=== PATIENT | female | born 1985 | race American Indian/Alaskan Native ===

== ENCOUNTER 2016-12-18 11:19 | Emergency (ER) | payer SELFPAY ==
--- NOTE | 2016-12-18 12:32 | C.PDOC ---
History Of Present Illness <Naa Cash - Last Filed: 12/18/16 18:42> <Pete Velazquez - Last Filed: 12/18/16 21:50> 31 year old female presents to the ED via BLS who state she was sitting in [employer] all morning. Patient is speaking but not making coherent sentences. HPI and ROS limited. (Naa Cash) History Per: EMS History/Exam Limitations: clinical condition Onset/Duration Of Symptoms: Unknown Current Symptoms Are (Timing): Still Present Severity: Mild <Naa Cash - Last Filed: 12/18/16 18:42> <Pete Velazquez - Last Filed: 12/18/16 21:50> Time Seen by Provider: 12/18/16 11:51 Chief Complaint (Nursing): Medical Clearance Past Medical History Reviewed: Historical Data, Nursing Documentation, Vital Signs Family History: States: Unknown Family Hx - Social History Hx Alcohol Use: No Hx Substance Use: No <Naa Cash - Last Filed: 12/18/16 18:42> Vital Signs: Last Vital Signs Temp 97.9 F 12/18/16 20:40 Pulse 77 12/18/16 20:40 Resp 18 12/18/16 20:40 BP 112/78 12/18/16 20:40 Pulse Ox 97 12/18/16 21:48 Review Of Systems Review Of Systems: ROS cannot be obtained secondary to pt's inabilty to answer questions. <Naa Cash - Last Filed: 12/18/16 18:42> Physical Exam - Physical Exam Appears: Non-toxic, No Acute Distress Skin: Normal Color, Warm, Dry Head: Atraumatic, Normacephalic Eye(s): bilateral: Normal Inspection Oral Mucosa: Moist Chest: Symmetrical, No Deformity Cardiovascular: Rhythm Regular Respiratory: Normal Breath Sounds, No Accessory Muscle Use, No Rales, No Rhonchi Extremity: Normal ROM Neurological/Psych: Other (Bizarre behavior) <Naa Cash - Last Filed: 12/18/16 18:42> ED Course And Treatment - Laboratory Results Result Diagrams: 12/18/16 13:22 12/18/16 13:22 O2 Sat by Pulse Oximetry: 100 (Room air) Pulse Ox Interpretation: Normal Progress Note: Blood work and Urinalysis ordered and reviewed. Case discussed with the crisis memory care director who agreed to evaluate the patient. Patient was approached multiple times by the crisis memory care director who states the patient is not communicating and refused to sign voluntary admission. Crisis found that the patient has a history of schizophrenia and was recently admitted to an involuntary psychiatric unit for a month. Patient will be placed on observation and stay to wait for the [facility] screener. She is stable and medically cleared for the screeners assessment. <Naa Cash - Last Filed: 12/18/16 18:42> - Laboratory Results Result Diagrams: 12/18/16 13:22 12/18/16 13:22 O2 Sat by Pulse Oximetry: 97 Pulse Ox Interpretation: Normal Progress Note: pt was cleared for discharge by dr lai. <Pete Velazquez - Last Filed: 12/18/16 21:50> ED OBSERVATION Date of observation admission: 12/18/16 Time of observation admission: 18:43 <Naa Cash - Last Filed: 12/18/16 18:42> Discharge: Yes <Pete Velazquez - Last Filed: 12/18/16 21:50> - Observation admission statement Patient is being placed in observation because:: Patient will be observed and she will be screened by [facility] psychiatric screener. (Naa Cash) Disposition - Disposition Disposition Time: 18:44 <Naa Cash - Last Filed: 12/18/16 18:42> Counseled Patient/Family Regarding: Studies Performed, Diagnosis, Need For Followup - Disposition Disposition Time: 19:00 <Pete Velazquez - Last Filed: 12/18/16 21:50> - Disposition Disposition: HOME/ ROUTINE Condition: FAIR Instructions: Anxiety (ED), Brief Psychotic Disorder (ED) - Clinical Impression Clinical Impression: Psychosis - PA / PIER MASTER / Resident Statement MD/DO has reviewed & agrees with the documentation as recorded. - Scribe Statement The provider has reviewed the documentation as recorded by the Scribe <Naa Cash - Last Filed: 12/18/16 18:42> <Pete Velazquez - Last Filed: 12/18/16 21:50> - Scribe Statement Martha Rhoades. All medical record entries made by the Scribe were at my direction and personally dictated by me. I have reviewed the chart and agree that the record accurately reflects my personal performance of the history, physical exam, medical decision making, and the department course for this patient. I have also personally directed, reviewed, and agree with the discharge instructions and disposition. (Naa Cash) Physician Patient Turnover Patient Signed Over To: Pete Velazquez Handoff Comments: waiting for psychiatric screener <Naa Cash - Last Filed: 12/18/16 18:42>
[2016-12-18 13:26] LABS: BASO # 0.1 K/uL (0.0-0.2); BASO % 1.1 % (0.0-2.0); EOS # 0.1 K/uL (0.0-0.7); EOS % 1.2 % (0.0-4.0); HEMATOCRIT 43.5 % (34.0-47.0); LYMPH # 1.8 K/uL (1.0-4.3); LYMPH % 36.3 % (20.0-40.0); MEAN CELL VOLUME 75.9 fL (81.0-99.0); MEAN CORPUSCULAR HEMOGLOBIN 24.7 pg (27.0-31.0); MEAN CORPUSCULAR HGB CONC 32.6 g/dL (33.0-37.0); MEAN PLATELET VOLUME 7.9 fL (7.2-11.7); MONO # 0.5 K/uL (0.0-0.8); MONO % 10.2 % (0.0-10.0); NRBC % 0.1 % (0.0-2.0); RED CELL DISTRIBUTION WIDTH 13.7 % (11.5-14.5); WHITE BLOOD COUNT 4.9 K/uL (4.8-10.8)
[2016-12-18 14:00] LABS: CHLORIDE 97 mmol/L (98-107)
[2016-12-18 14:01] LABS: POTASSIUM 3.6 mmol/L (3.6-5.2); SODIUM 141 mmol/L (132-148)
[2016-12-18 14:03] LABS: ALB/GLOB RATIO 1.2 (1.0-2.1); ALKALINE PHOSPHATASE 65 U/L (38-126); AST/SGOT 31 U/L (14-36); BILIRUBIN,TOTAL 1.2 mg/dL (0.2-1.3); CARBON DIOXIDE 28 mmol/L (22-30); GFR AFRICAN-AMERICAN > 60; TOTAL PROTEIN 9.1 g/dL (6.3-8.3)
[2016-12-18 14:04] LABS: ALCOHOL SERUM < 10 mg/dl (0-10); ALT/SGPT 27 U/L (9-52); BLOOD UREA NITROGEN 15 mg/dL (7-17); CALCIUM 9.7 mg/dl (8.6-10.4); GLUCOSE,RANDOM 92 mg/dL (65-105)
[2016-12-18 14:15] LABS: LITHIUM < 0.2 mmol/L (0.6-1.2)
[2016-12-18 14:18] LABS: CARBAMAZEPINE < 3.0 ug/mL (4.0-12.0)
[2016-12-18 14:20] LABS: VALPROIC ACID < 10.0 ug/mL (50.0-100.0)
[2016-12-18 14:28] LABS: RBC URINE 3 /hpf (0-3); URINE BACTERIA RARE (<OCC); URINE BILIRUBIN NEGATIVE (NEGATIVE); URINE BLOOD NEGATIVE (NEGATIVE); URINE COLOR Amber (YELLOW); URINE GLUCOSE (UA) NORMAL (Normal); URINE KETONE TRACE mg/dL (NEGATIVE); URINE LEUKOCYTE ESTERASE 1+ Leu/uL (Negative); URINE PROTEIN 1+ mg/dL (NEGATIVE); WBC URINE 8 /hpf (0-5)
[2016-12-18 20:41] VITALS: RESP 18
[2016-12-18 22:50] VITALS: BP 102/70; PULSE 78; TEMP 98.4; O2SAT 100
== END 2016-12-18 23:05 | disposition home or self-care (01) ==
LOC: C.ER 11:19
DX: F20.9 Schizophrenia, unspecified (principal)
CPT/HCPCS: 80053; 80156; 80164; 80178; 80185; 81001; 82550; 84703; 85025; 99283; G0480

== ENCOUNTER 2017-01-10 00:35 | Observation (INO) | payer SELFPAY ==
[2017-01-10 00:50] VITALS: BP 114/77; O2SAT 100
--- NOTE | 2017-01-10 04:37 | C.PDOC ---
History Of Present Illness The patient, a 31 y/o female whose PMHx includes Schizophrenia, presents to the ED via ambulance and accompanied by police for psychiatric evaluation. Patient was found wandering outside in the street prior to arrival. Upon arrival to the ED, patient states she does not want to stay in the ED, refuses evaluation, and does not want to answer questions. Additional history limited due to patient's poor compliance. Time Seen by Provider: 01/10/17 01:45 Chief Complaint (Nursing): Psychiatric Evaluation History Per: Patient, EMS History/Exam Limitations: other (+poor compliance ) Current Symptoms Are (Timing): Still Present Suicide/Self Injury Attempted (Context): None Involuntary Hold By: None Recent travel outside of the [place]: No Additional History Per: Patient, EMS, Law Enforcement Past Medical History Reviewed: Historical Data, Nursing Documentation, Vital Signs Vital Signs: Last Vital Signs Temp 98.2 F 01/10/17 00:43 Pulse 88 01/10/17 00:43 Resp 20 01/10/17 00:43 BP 114/77 01/10/17 00:43 Pulse Ox 100 01/10/17 05:26 - Medical History PMH: Schizophrenia Denies: Diabetes (Patient denied), Hepatitis (patient denied ), HIV (patient denied), HTN (Patient denied), Seizures (Patient denied), Sexually Transmitted Disease (Patient denied) Surgical History: No Surg Hx Family History: States: Unknown Family Hx - Social History Hx Alcohol Use: No Hx Substance Use: No Review Of Systems Except As Marked, All Systems Reviewed And Found Negative. Psych: Positive for: Other (+wandering outside in street ) Physical Exam - Physical Exam Appears: Non-toxic, No Acute Distress, Other (thin, black female ) Skin: Normal Color, Warm, Dry Head: Atraumatic, Normacephalic Eye(s): bilateral: Normal Inspection, EOMI Oral Mucosa: Moist Neck: Supple Chest: Symmetrical, No Deformity, No Tenderness Cardiovascular: Rhythm Regular, No Murmur Respiratory: Normal Breath Sounds, No Rales, No Rhonchi, No Wheezing Extremity: Normal ROM, Capillary Refill (less than 2 seconds ) Neurological/Psych: Oriented x3, Normal Speech, Normal Cognition Gait: Steady ED Course And Treatment O2 Sat by Pulse Oximetry: 100 (on RA) Pulse Ox Interpretation: Normal Reevaluation Time: 05:39 Reassessment Condition: Improved (calm, cooperative, wants d/c to street.) Medical Decision Making Medical Decision Making: baseline schizophrenia, declines medical attention. ED OBSERVATION Discharge: Yes Date of observation admission: 01/10/17 Time of observation admission: 01:47 - Progress Note Progress Note: 01/10/17 05:26 patient is resting comfortably, vitals remain stable. Disposition Doctor Will See Patient In The: Office Counseled Patient/Family Regarding: Studies Performed, Diagnosis - Disposition Disposition: HOME/ ROUTINE Disposition Time: 05:39 Condition: GOOD - Clinical Impression Clinical Impression: Schizophrenia - Scribe Statement The provider has reviewed the documentation as recorded by the Scribe (Christa Chung) Provider Attestation: All medical record entries made by the Scribe were at my direction and personally dictated by me. I have reviewed the chart and agree that the record accurately reflects my personal performance of the history, physical exam, medical decision making, and the department course for this patient. I have also personally directed, reviewed, and agree with the discharge instructions and disposition.
[2017-01-10 06:14] VITALS: PULSE 69; RESP 18; TEMP 98.1
== END 2017-01-10 05:40 | disposition home or self-care (01) ==
LOC: C.ER 00:35 → C.9OBSV 01:47
PROVIDERS: ADMIT Internal Medicine; ATTEND Internal Medicine
DX: F20.9 Schizophrenia, unspecified (principal); Z68.1 Body mass index [BMI] 19.9 or less, adult

== ENCOUNTER 2017-01-11 18:48 | Emergency (ER) | payer SELFPAY ==
[2017-01-11 19:07] VITALS: TEMP 97.4; O2SAT 98
--- NOTE | 2017-01-11 20:55 | C.PDOC ---
History Of Present Illness Pt was BIBEMS because she refused to leave a [employer]. 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) Current Symptoms Are (Timing): Still Present Suicide/Self Injury Attempted (Context): None Modifying Factor(s): None Severity: Mild Associated Symptoms: denies: Suicidal Thoughts, Suicidal Plan Involuntary Hold By: None Additional History Per: Prior Records Past Medical History Reviewed: Historical Data, Nursing Documentation, Vital Signs Vital Signs: Last Vital Signs Temp 97.4 F L 01/11/17 19:01 Pulse 72 01/11/17 19:01 Resp 18 01/11/17 19:01 BP Pulse Ox 98 01/11/17 19:01 - Medical History PMH: Schizophrenia Family History: States: Unknown Family Hx - Social History Hx Tobacco Use: No Hx Alcohol Use: No Hx Substance Use: No Review Of Systems Constitutional: Negative for: Fever Cardiovascular: Negative for: Chest Pain Respiratory: Negative for: Shortness of Breath Gastrointestinal: Negative for: Vomiting, Abdominal Pain Musculoskeletal: Negative for: Neck Pain Skin: Negative for: Rash Neurological: Negative for: Weakness, Numbness, Seizures, Headache Psych: Negative for: Psychosis Physical Exam - Physical Exam Appears: Non-toxic, No Acute Distress Skin: Normal Color, Warm, Dry, No Rash Head: Atraumatic, Normacephalic Eye(s): bilateral: Normal Inspection, PERRL, EOMI Neck: Normal ROM, Supple Cardiovascular: Rhythm Regular Respiratory: Normal Breath Sounds, No Accessory Muscle Use Gastrointestinal/Abdominal: Soft, No Tenderness Extremity: Normal ROM, No Deformity Neurological/Psych: Oriented x3, Normal Motor, Normal Sensation Gait: Steady ED Course And Treatment O2 Sat by Pulse Oximetry: 98 Pulse Ox Interpretation: Normal Progress Note: Pt does not want to be here and doest not know why she was brought here against her will. Pt denies SI/HI or any hallucinations. She has a place to stay tonight. Disposition Counseled Patient/Family Regarding: Diagnosis, Need For Followup - Disposition Referrals: [facility] [Outside] Disposition: HOME/ ROUTINE Disposition Time: 20:55 Condition: STABLE Additional Instructions: Follow up in the clinic. Return to the ER if you develop suicidal or homicidal thoughts, hallucinations, worsening of symptoms or if you have any other concerns. Instructions: Schizophrenia (ED) - Clinical Impression Clinical Impression: Psychiatric illness
[2017-01-11 21:23] VITALS: BP 112/75; PULSE 71; RESP 16
== END 2017-01-11 21:23 | disposition home or self-care (01) ==
LOC: C.ER 18:48
DX: F99 Mental disorder, not otherwise specified (principal)

== ENCOUNTER 2017-01-14 13:18 | Emergency (ER) | payer SELFPAY ==
[2017-01-14 13:31] VITALS: BP 116/72; PULSE 96; RESP 18; TEMP 98.5; O2SAT 100
--- NOTE | 2017-01-14 14:13 | C.PDOC ---
History Of Present Illness A 31 year old female was brought in via EMS with no complaints today. 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 Patient has no medical complaints at this time and denies homicidal or suicidal ideation, trauma, confusion, or any other complaints. Patient has several prior visits for similar issues. Time Seen by Provider: 01/14/17 13:26 Chief Complaint (Nursing): Medical Clearance History Per: Patient History/Exam Limitations: no limitations Onset/Duration Of Symptoms: Hrs Severity: None Reports Recently: Seen In ED Recent travel outside of the [place]: No Additional History Per: Patient Past Medical History Reviewed: Historical Data, Nursing Documentation, Vital Signs Vital Signs: Last Vital Signs Temp 98.5 F 01/14/17 13:25 Pulse 96 H 01/14/17 13:25 Resp 18 01/14/17 13:25 BP 116/72 01/14/17 13:25 Pulse Ox 100 01/14/17 14:31 - Medical History PMH: Schizophrenia Family History: States: Unknown Family Hx - Social History Hx Tobacco Use: No Hx Alcohol Use: No Hx Substance Use: No Review Of Systems Except As Marked, All Systems Reviewed And Found Negative. Constitutional: Negative for: Other (Trauma) Neurological: Negative for: Confusion Psych: Negative for: Suicidal ideation Physical Exam - Physical Exam Appears: Non-toxic, No Acute Distress Skin: Warm, Dry Head: Atraumatic, Normacephalic Eye(s): bilateral: Normal Inspection Cardiovascular: Rhythm Regular, No Murmur Respiratory: Normal Breath Sounds, No Rales, No Rhonchi, No Wheezing Gastrointestinal/Abdominal: Soft, No Tenderness Neurological/Psych: Oriented x3, Normal Speech, Normal Cognition ED Course And Treatment O2 Sat by Pulse Oximetry: 100 (Room air) Pulse Ox Interpretation: Normal Medical Decision Making Medical Decision Making: Plans Pt expressed no SI or HI does not want further medical intervention Stable for discharge Disposition Counseled Patient/Family Regarding: Need For Followup - Disposition Disposition: HOME/ ROUTINE Disposition Time: 14:02 Condition: FAIR Forms: General Discharge Instructions - Clinical Impression Clinical Impression: Schizophrenia, Encounter for medical screening examination - Scribe Statement The provider has reviewed the documentation as recorded by the Scribe Lesly benítez All medical record entries made by the Scribe were at my direction and personally dictated by me. I have reviewed the chart and agree that the record accurately reflects my personal performance of the history, physical exam, medical decision making, and the department course for this patient. I have also personally directed, reviewed, and agree with the discharge instructions and disposition.
== END 2017-01-14 14:45 | disposition home or self-care (01) ==
LOC: C.ER 13:18
DX: F20.9 Schizophrenia, unspecified (principal)

== ENCOUNTER 2017-01-28 15:08 | Emergency (ER) | payer SELFPAY ==
[2017-01-28 15:33] VITALS: BP 113/76; PULSE 104; RESP 19; TEMP 97.9; O2SAT 100
--- NOTE | 2017-01-28 16:01 | C.PDOC ---
History Of Present Illness A 31 y/o female with a Hx of schizophrenia was brought in by EMS and police for a emotionally disturbed verbal conflict that occurred [employer]. Pt has multiple recent evaluations at the ER. Pt denies any complaints at this time. Time Seen by Provider: 01/28/17 15:28 Chief Complaint (Nursing): Psychiatric Evaluation History Per: Patient History/Exam Limitations: no limitations Onset/Duration Of Symptoms: Hrs Current Symptoms Are (Timing): Gone Modifying Factor(s): None Severity: Mild Associated Symptoms: denies: Suicidal Thoughts, Suicidal Plan Additional History Per: Patient Past Medical History Reviewed: Historical Data, Nursing Documentation, Vital Signs Vital Signs: Last Vital Signs Temp 97.9 F 01/28/17 15:32 Pulse 104 H 01/28/17 15:32 Resp 19 01/28/17 15:32 BP 113/76 01/28/17 15:32 Pulse Ox 100 01/28/17 17:23 - Medical History PMH: Schizophrenia Family History: States: Unknown Family Hx - Social History Hx Tobacco Use: No Hx Alcohol Use: No Hx Substance Use: No Review Of Systems Except As Marked, All Systems Reviewed And Found Negative. (Emotionally disturbed and arousable) Constitutional: Positive for: Other. Negative for: Fever, Chills Psych: Negative for: Suicidal ideation Physical Exam - Physical Exam Appears: Non-toxic, No Acute Distress, Other (Bizzare flat affect) Skin: Warm, Dry Head: Atraumatic, Normacephalic Eye(s): bilateral: Normal Inspection, PERRL, EOMI Cardiovascular: Rhythm Regular, No Murmur Respiratory: Normal Breath Sounds, No Rales, No Rhonchi, No Wheezing Neurological/Psych: Normal Speech, Other (Awake and alert, No focal deficit) ED Course And Treatment O2 Sat by Pulse Oximetry: 100 (RA) Pulse Ox Interpretation: Normal Medical Decision Making Medical Decision Making: Plans: -Blood labs (Alcohol serum) -Reassess and disposition Pt refused blood testing and discussion with crisis. multiple prior eval for EDP, refused w/u d/w Crisis- pt cleared for d/c as not a risk to self/others and @ baseline INitially pending p/u by pt's sister. On reassessment, patient is resting comfortably, and is in no acute distress. Patient was instructed to follow up with physician/clinic in 1-2 days for further evaluation. Disposition Doctor Will See Patient In The: Office Counseled Patient/Family Regarding: Studies Performed, Diagnosis - Disposition Referrals: [facility] [Outside] [facility] [Outside] Disposition: HOME/ ROUTINE Disposition Time: 16:00 Condition: GOOD Additional Instructions: continue your normal meds and outpatient psych follow-up Please avoid personal confrontations in public places. Instructions: Schizophrenia (ED) - Clinical Impression Clinical Impression: Schizophrenia - Scribe Statement The provider has reviewed the documentation as recorded by the Scribe Lesly benítez All medical record entries made by the Scribe were at my direction and personally dictated by me. I have reviewed the chart and agree that the record accurately reflects my personal performance of the history, physical exam, medical decision making, and the department course for this patient. I have also personally directed, reviewed, and agree with the discharge instructions and disposition.
== END 2017-01-28 16:45 | disposition home or self-care (01) ==
LOC: C.ER 15:08
DX: F20.9 Schizophrenia, unspecified (principal)

== ENCOUNTER 2018-08-29 04:07 | Emergency (ER) | payer MEDICAID ==
--- NOTE | 2018-08-29 04:30 | C.PDOC ---
History Of Present Illness The patient is brought to the ED by ambulance and with [facility] escort for psychiatric evaluation. As per police, patient was found on the train with bizarre behavior prior to arrival. Patient noted to be uncooperative. She denies suicidal/homicidal ideation at this time. Time Seen by Provider: 08/29/18 04:29 Chief Complaint (Nursing): Psychiatric Evaluation History Per: Patient, EMS History/Exam Limitations: no limitations Onset/Duration Of Symptoms: Hrs Current Symptoms Are (Timing): Still Present Suicide/Self Injury Attempted (Context): None Severity: None Pain Scale Rating Of: 0 Associated Symptoms: denies: Suicidal Thoughts, Suicidal Plan Involuntary Hold By: None Recent travel outside of the [place]: No Additional History Per: Patient, EMS, Law Enforcement Past Medical History Reviewed: Historical Data, Nursing Documentation, Vital Signs Vital Signs: Last Vital Signs Temp 98.3 F 08/29/18 04:17 Pulse 100 H 08/29/18 04:17 Resp 18 08/29/18 04:17 BP 114/73 08/29/18 04:17 Pulse Ox 100 08/29/18 04:17 - Medical History PMH: Schizophrenia Denies: Diabetes, Hepatitis, HIV, HTN, Seizures, Sexually Transmitted Disease Surgical History: No Surg Hx Family History: States: Unknown Family Hx - Social History Hx Tobacco Use: No Hx Alcohol Use: No Hx Substance Use: No - Immunization History Hx Tetanus Toxoid Vaccination: (unknown) Hx Influenza Vaccination: (unknown) Hx Pneumococcal Vaccination: (unknown) Review Of Systems Constitutional: Negative for: Fever, Chills Cardiovascular: Negative for: Chest Pain, Palpitations Respiratory: Negative for: Cough, Shortness of Breath Gastrointestinal: Negative for: Nausea, Vomiting, Abdominal Pain Skin: Negative for: Rash, Lesions, Jaundice, Bruising Neurological: Negative for: Weakness, Numbness Psych: Positive for: Other (psychiatric evaluation of bizarre behavior ). Negative for: Suicidal ideation Physical Exam - Physical Exam Appears: Non-toxic, No Acute Distress Skin: Warm, Dry Head: Normacephalic Chest: Symmetrical, No Deformity Respiratory: No Accessory Muscle Use Extremity: Normal ROM Neurological/Psych: Oriented x3 ED Course And Treatment - Laboratory Results Result Diagrams: 08/29/18 04:43 08/29/18 04:43 ECG: Interpreted By Me, Viewed By Me ECG Rhythm: Sinus Rhythm (106), Nonspecific Changes O2 Sat by Pulse Oximetry: 100 (on RA) Pulse Ox Interpretation: Normal - Radiology CXR: Interpreted by Me Progress Note: Bloodwork and urinalysis ordered and reviewed. Patient placed on one-to-one ED observation and will be evaluated by group social worker. Disposition Counseled Patient/Family Regarding: Studies Performed, Diagnosis - Disposition Disposition Time: 04:29 Condition: FAIR Forms: [employer] (Y[place]i) - Clinical Impression Clinical Impression: Schizophrenia - Scribe Statement The provider has reviewed the documentation as recorded by the Scribe (Christa Chung) Provider Attestation: All medical record entries made by the Scribe were at my direction and personally dictated by me. I have reviewed the chart and agree that the record accurately reflects my personal performance of the history, physical exam, medical decision making, and the department course for this patient. I have also personally directed, reviewed, and agree with the discharge instructions and disposition. Physician Patient Turnover Patient Signed Over To: Demetri Garces Handoff Comments: pending cxr, [facility] screeners and disposition
[2018-08-29 04:46] LABS: BASO % 0.5 % (0.0-2.0); EOS % 0.1 % (0.0-4.0); HCG,QUALITATIVE URINE NEGATIVE (NEGATIVE); HEMOGLOBIN 11.5 g/dL (11.0-16.0); LYMPH # 0.4 K/uL (1.0-4.3); LYMPH % 7.1 % (20.0-40.0); MEAN CELL VOLUME 75.4 fL (81.0-99.0); MEAN CORPUSCULAR HEMOGLOBIN 24.3 pg (27.0-31.0); MEAN CORPUSCULAR HGB CONC 32.3 g/dL (33.0-37.0); MEAN PLATELET VOLUME 7.8 fL (7.2-11.7); MONO # 0.3 K/uL (0.0-0.8); MONO % 5.7 % (0.0-10.0); NEUT % 86.6 % (50.0-75.0); NRBC % 0.1 % (0.0-2.0); PLATELET COUNT 268 K/uL (130-400); RBC 4.73 Mil/uL (3.80-5.20); WHITE BLOOD COUNT 5.8 K/uL (4.8-10.8)
[2018-08-29 04:51] LABS: SQUAMOUS EPITHIAL 24 /hpf (0-5); URINE BACTERIA RARE (<OCC); URINE BILIRUBIN NEGATIVE (NEGATIVE); URINE BLOOD NEGATIVE (NEGATIVE); URINE CLARITY Hazy (Clear); URINE COLOR Yellow (YELLOW); URINE GLUCOSE (UA) NORMAL (Normal); URINE LEUKOCYTE ESTERASE 3+ Leu/uL (Negative); URINE PROTEIN NEGATIVE (NEGATIVE)
[2018-08-29 05:00] LABS: ALB/GLOB RATIO 1.4 (1.0-2.1); ALBUMIN 4.4 g/dL (3.5-5.0); ALT/SGPT 18 U/L (9-52); AST/SGOT 18 U/L (14-36); BLOOD UREA NITROGEN 7 mg/dL (7-17); CALCIUM 8.6 mg/dl (8.6-10.4); GFR NON-AFRICAN AMERICAN > 60
[2018-08-29 05:03] LABS: BARBITURATES, UR NEGATIVE (NEGATIVE); BENZODIAZEPINES, UR NEGATIVE (NEGATIVE); OPIATES, UR NEGATIVE (NEGATIVE); PHENCYCLIDINE, UR NEGATIVE (NEGATIVE)
[2018-08-29 05:26] LABS: BANDS 2 % (0-2); LYMPHOCYTE 8 % (20-40); MONOCYTE 4 % (0-10); NEUTROPHIL 85 % (50-75); PLATELET ESTIMATE NORMAL (NORMAL); REACTIVE LYMPHOCYTES 1 % (0-0); TOTAL CELLS COUNTED 100
[2018-08-29 07:41] VITALS: RESP 20
--- NOTE | 2018-08-29 08:18 | RAD ---
Date of service: 08/29/2018 HISTORY: for medical clearance -psych screening COMPARISON: None available. FINDINGS: LUNGS: No active pulmonary disease. PLEURA: No significant pleural effusion identified, no pneumothorax apparent. CARDIOVASCULAR: No aortic atherosclerotic calcification present. Normal cardiac size. No pulmonary vascular congestion. OSSEOUS STRUCTURES: No significant abnormalities. VISUALIZED UPPER ABDOMEN: Normal. OTHER FINDINGS: None. IMPRESSION: No acute cardiopulmonary disease appreciated.
[2018-08-29 12:11] VITALS: BP 100/60; PULSE 102; TEMP 100.4; O2SAT 100
--- NOTE | 2018-08-30 21:47 | CARD ---
APPROVED REPORT Date of service: 08/29/2018 EKG Measurement Heart [id number] <Conclusion> Sinus tachycardia Otherwise normal ECG
== END 2018-08-29 12:13 | disposition home or self-care (01) ==
LOC: C.ER 04:07
DX: F20.9 Schizophrenia, unspecified (principal)
CPT/HCPCS: 71045; 80053; 81001; 83735; 84100; 84703; 85025; 93005; 99285; G0480

== ENCOUNTER 2018-10-20 18:26 | Emergency (ER) | payer MEDICAID ==
--- NOTE | 2018-10-20 18:34 | C.PDOC ---
History Of Present Illness LIMITED DUE TO CLIN COND HX PER BROTHER @ BEDSIDE REFERRED FROM [facility] FOR EVAL. BROTHER STATES PT W PERSIST SLOW SPEECH, DIFFICULTY TAKING CARE OF SELF X 1 MO. RECEIVED UNK INJECTION @ [facility] 1 MO AGO DUE TO PSYCH AGITATION. SINCE THEN W PERSIST SX. SP EVAL @ [facility] [place] AND GIVEN BENADRYL BUT NO IMPROVE. PT HAS BEEN LIVING W HER SISTER. NOW UNABLE TO FEED, DRESS SELF +WT LOSS. BROTHER STATES PT NOW SPEAKS VERY SLOWLY BUT IS APPROPRIATE AND INTERACTIVE. NO DRUG, ETOH USE. PT DENIES PAIN @ THIS TIME EXAM NAD NONTOXIC HEENT ATRAUM EXT AROM WO DIFF NEURO NO GROSS FOCAL DEF NO SLURRING PSYCH CALM COOPERATIVE FLAT AFFECT, DYSTONIA? REMAINDER NEG PER OLD RECS, PT W PREV ER VISITS NOTED TO BE AGITATED AND FREQ REQUIRING RESTRAINT. Time Seen by Provider: 10/20/18 18:33 History/Exam Limitations: clinical condition Additional History Per: Family (brother) Past Medical History Reviewed: Historical Data, Nursing Documentation, Vital Signs - Medical History PMH: Schizophrenia Denies: Diabetes, Hepatitis, HIV, HTN, Seizures, Sexually Transmitted Disease Surgical History: No Surg Hx Family History: States: Unknown Family Hx - Social History Hx Tobacco Use: No Hx Alcohol Use: No Hx Substance Use: No - Immunization History Hx Tetanus Toxoid Vaccination: (unknown) Hx Influenza Vaccination: (unknown) Hx Pneumococcal Vaccination: (unknown) Review Of Systems Except As Marked, All Systems Reviewed And Found Negative. (ROS obtained per brother at bedside) Constitutional: Positive for: Weight loss Psych: Positive for: Other (flat affect) Physical Exam - Physical Exam Appears: Non-toxic, No Acute Distress Skin: Normal Color, Warm, Dry Head: Atraumatic, Normacephalic Eye(s): bilateral: Normal Inspection Neck: Normal ROM, Supple Chest: Symmetrical Cardiovascular: Rhythm Regular Respiratory: Normal Breath Sounds Gastrointestinal/Abdominal: Normal Exam, Soft Back: Normal Inspection Extremity: Normal ROM (Active ROM without difficulty) Neurological/Psych: Normal Motor, Normal Sensation, Other (no focal deficit; calm and cooperative; flat affect) ED Course And Treatment - Laboratory Results Result Diagrams: 10/20/18 19:07 10/20/18 19:07 Urine POC: Negative O2 Sat by Pulse Oximetry: 99 (RA) Pulse Ox Interpretation: Normal - Radiology CXR: Interpreted by Me CXR Interpretation: Yes: No Acute Disease Progress - Re-Evaluation Re-evaluation Note: 10/20/18 20:18 med clear for psych. crisis notified 10/20/18 22:09 cleared for dc PER CRISIS BY DR CEDEÑO. [facility] APPOINTMENT SCHEDULED 10/27 - Data Reviewed Data Reviewed: Lab, Diagnostic imaging, Old records Disposition Counseled Patient/Family Regarding: Studies Performed, Diagnosis, Need For Followup - Disposition Referrals: [facility] [Provider Group] Disposition: HOME/ ROUTINE Disposition Time: 22:10 Condition: GOOD Instructions: Schizoaffective Disorder (DC) - Clinical Impression Clinical Impression: Schizoaffective disorder - Scribe Statement The provider has reviewed the documentation as recorded by the Shaylee Cook Provider Attestation: All medical record entries made by the Shaylee were at my direction and personally dictated by me. I have reviewed the chart and agree that the record accurately reflects my personal performance of the history, physical exam, medical decision making, and the department course for this patient. I have also personally directed, reviewed, and agree with the discharge instructions and disposition.
[2018-10-20 19:00] LABS: SQUAMOUS EPITHIAL 5 /hpf (0-5); URINE BACTERIA RARE (<OCC); URINE BILIRUBIN NEGATIVE (NEGATIVE); URINE BLOOD 1+ (NEGATIVE); URINE CLARITY Hazy (Clear); URINE COLOR Yellow (YELLOW); URINE GLUCOSE (UA) NORMAL (Normal); URINE LEUKOCYTE ESTERASE 2+ Leu/uL (Negative); URINE PROTEIN 1+ mg/dL (NEGATIVE)
[2018-10-20 19:04] VITALS: TEMP 98.8
[2018-10-20 19:21] LABS: BASO % 0.8 % (0.0-2.0); EOS # 0.3 K/uL (0.0-0.7); EOS % 5.8 % (0.0-4.0); HEMOGLOBIN 10.7 g/dL (11.0-16.0); LYMPH # 1.4 K/uL (1.0-4.3); LYMPH % 28.4 % (20.0-40.0); MEAN CELL VOLUME 75.5 fL (81.0-99.0); MEAN CORPUSCULAR HEMOGLOBIN 23.7 pg (27.0-31.0); MEAN CORPUSCULAR HGB CONC 31.4 g/dL (33.0-37.0); MEAN PLATELET VOLUME 7.6 fL (7.2-11.7); MONO # 0.5 K/uL (0.0-0.8); NEUT # 2.8 K/uL (1.8-7.0); RBC 4.5 Mil/uL (3.80-5.20); RED CELL DISTRIBUTION WIDTH 14.8 % (11.5-14.5); WHITE BLOOD COUNT 5.1 K/uL (4.8-10.8)
[2018-10-20 19:22] LABS: BARBITURATES, UR NEGATIVE (NEGATIVE); BENZODIAZEPINES, UR NEGATIVE (NEGATIVE); OPIATES, UR NEGATIVE (NEGATIVE); PHENCYCLIDINE, UR NEGATIVE (NEGATIVE)
[2018-10-20 19:26] LABS: ALB/GLOB RATIO 1.5 (1.0-2.1); ALBUMIN 4.2 g/dL (3.5-5.0); ALT/SGPT 12 U/L (9-52); AST/SGOT 14 U/L (14-36); BLOOD UREA NITROGEN 8 mg/dL (7-17); CALCIUM 8.7 mg/dl (8.6-10.4); GFR NON-AFRICAN AMERICAN > 60
[2018-10-20 22:27] VITALS: BP 117/74; PULSE 63; RESP 20; O2SAT 98
--- NOTE | 2018-10-21 07:19 | CT ---
Date of service: 10/20/2018 PROCEDURE: CT HEAD WITHOUT CONTRAST. HISTORY: AMS COMPARISON: None available. TECHNIQUE: Axial computed tomography images were obtained through the head/brain without intravenous contrast. Radiation dose: Total exam DLP = 1120.18 mGy-cm. This CT exam was performed using one or more of the following dose reduction techniques: Automated exposure control, adjustment of the mA and/or kV according to patient size, and/or use of iterative reconstruction technique. FINDINGS: HEMORRHAGE: No intracranial hemorrhage. BRAIN: No mass effect or edema. No atrophy or chronic microvascular ischemic changes. VENTRICLES: Unremarkable. No hydrocephalus. CALVARIUM: Unremarkable. PARANASAL SINUSES: Unremarkable as visualized. No significant inflammatory changes. MASTOID AIR CELLS: Unremarkable as visualized. No inflammatory changes. OTHER FINDINGS: None. IMPRESSION: No evidence of acute intracranial hemorrhage intracranial collection mass effect or midline shift. Preliminary report contains concordant findings was submitted by [facility].
--- NOTE | 2018-10-21 10:23 | RAD ---
HISTORY: AMS COMPARISON: Chest x-ray performed 08/29/18 TECHNIQUE: Chest, one view. FINDINGS: LUNGS: No focal consolidation. Probable tiny calcified granulomas right lung apex and left mid lung zone. Please note that chest x-ray has limited sensitivity for the detection of pulmonary masses. PLEURA: No significant pleural effusion identified. No definite pneumothorax . CARDIOVASCULAR: Heart size appears within normal limits. No significant atherosclerotic calcification present. OSSEOUS STRUCTURES: No acute osseous abnormality identified. VISUALIZED UPPER ABDOMEN: Unremarkable. OTHER FINDINGS: None. IMPRESSION: No focal consolidation.
== END 2018-10-20 22:57 | disposition home or self-care (01) ==
LOC: C.ER 18:26
DX: F25.9 Schizoaffective disorder, unspecified (principal)